=== PATIENT | male | born 1995 | race Hispanic/Latino ===

== ENCOUNTER 2020-12-18 14:18 | Emergency (ER) | payer SELFPAY ==
[~2020-12-18] VITALS: Ht 172.7 cm; Wt 95.3 kg
[2020-12-18 14:41] LABS: APPEARANCE,URINE Clear (CLEAR); BILIRUBIN,URINE Negative (NEGATIVE); COLOR,URINE Yellow (YELLOW); GLUCOSE, URINE (UA) Negative (NEGATIVE); KETONES,URINE Negative (NEGATIVE); LEUKOCYTE ESTERASE ,URINE Negative (NEGATIVE); NITRATE,URINE Negative (NEGATIVE); OCCULT BLOOD,URINE Negative (NEGATIVE); PH,URINE 8.5 (5.0-8.0); PROTEIN,URINE Negative (NEGATIVE); UROBILINOGEN,URINE 0.2 mg/dL (0.2-1.0)
[2020-12-18] MEDS ORDERED: CEFTRIAXONE 1G VIAL IM ONE (15:30)
[2020-12-18] MEDS ORDERED: KETOROLAC 60 MG VIAL (30MG/ML) IM ONE (15:30)
[2020-12-18] MEDS ORDERED: CIPR-278 PO (16:23)
[2020-12-18] MEDS ORDERED: IBUP-1552 PO (16:23)
[2020-12-18 16:42] VITALS: BP 128/78
== END 2020-12-18 16:54 | disposition home or self-care (01) ==
LOC: EDH 14:18
DX: N43.3 Hydrocele, unspecified (principal); N45.1 Epididymitis; I86.1 Scrotal varices; K40.90 Unilateral inguinal hernia, without obstruction or gangrene, not specified as recurrent
CPT/HCPCS: 76870; 81003; 87486; 87797; 96372 ×2; 99284; J0696; J1885